=== PATIENT | female | born 1945 | race Caucasian/White ===

== ENCOUNTER → 2016-05-16 | Outpatient (CLI) | payer MEDICARE, OTHER ==
--- NOTE | 2016-05-17 07:27 | MRI ---
EXAM DESCRIPTION: Brain w/oContrast CLINICAL HISTORY: 71 years, Female, MEMORY LOSS COMPARISON: None available. TECHNIQUE: Multiplanar multi sequence images of the brain were obtained without gadolinium contrast. FINDINGS: Diffusion-weighted images show no diffusion restriction. Midline structures, including the corpus callosum, pituitary and brainstem, are unremarkable. The ventricles are of normal size and configuration, and there is no intraventricular mass. Physiologic vascular flow voids are noted. The internal auditory canals and cerebellopontine angles are unremarkable. There are no extra-axial fluid collections. There are irregular areas of increased T2/FLAIR signal involving periventricular and subcortical white matter in both cerebral hemispheres, nonspecific but likely related to chronic ischemic microvascular disease. There is no posterior fossa lesion. Visualized paranasal sinuses and orbits are unremarkable. There is no calvarial lesion. IMPRESSION: Irregular areas of increased T2/FLAIR signal involving periventricular and subcortical white matter in both cerebral hemispheres, nonspecific but likely related to chronic ischemic microvascular disease. No additional intracranial abnormality to explain memory loss. Electronically signed by: Ketan Hernandes MD 05/17/2016 7:26 AM CDT
== END | disposition home or self-care (01) ==
LOC: MRI 12:46
PROVIDERS: ATTEND Family Medicine
DX: R41.89 Other symptoms and signs involving cognitive functions and awareness (principal)

== ENCOUNTER → 2017-04-19 | Outpatient (CLI) | payer MEDICARE, OTHER | LOC: GMAH 11:46 | PROVIDERS: ATTEND Family Medicine | DX: R53.81 Other malaise (principal); E53.8 Deficiency of other specified B group vitamins; E55.9 Vitamin D deficiency, unspecified ==

== ENCOUNTER → 2017-06-04 | Outpatient (CLI) | payer MEDICARE, OTHER | LOC: GMAH 14:31 | PROVIDERS: ATTEND Family Medicine | DX: E03.9 Hypothyroidism, unspecified (principal); E53.8 Deficiency of other specified B group vitamins ==

== ENCOUNTER 2017-06-22 20:52 | Emergency (ER) | payer MEDICARE, OTHER ==
--- NOTE | 2017-06-22 21:49 | ED.PDOC ---
History of Present Illness - General Chief Complaint: Behavioral / Psych Stated Complaint: shaky, legs feel like "jelly", heavy chest pressu Time Seen by Provider: 06/22/17 21:04 Source: patient Exam Limitations: no limitations Additional Information: PT STATES SHE WAS LEAVING TO EAT WHEN HER LEGS BECAME LIKE JELLY AND SHE ALMOST FELL. WAS ABLE TO GET HER INTO THE CAR SHE DID GO OUT AND EAT DINNER BUT HER LEGS STILL FEEL HEAVY SO SHE CAME TO THE ER FOR EVALUATION. NO FOCAL WEAKNESS. - History of Present Illness Timing/Duration: other - [employer] Severity: moderate Improving Factors: nothing Worsening Factors: nothing Associated Symptoms: chest pain Allergies/Adverse Reactions: Allergies UNOBTAINABLE Allergy (Verified 06/22/17 21:05) Review of Systems - Review of Systems Constitutional: Denies: chills, fever EENTM: Denies: blurred vision, ear pain, throat pain Respiratory: Denies: cough, short of breath, wheezing Cardiology: States: chest pain, syncope, other - SUBSTERNAL PRESSURE, NO RADIATION. Denies: palpitations Gastrointestinal/Abdominal: Denies: abdominal pain, nausea, vomiting Genitourinary: States: no symptoms reported Musculoskeletal: States: other - C/O LEG HEAVINESS PRIMARILY IN THIGHS. Denies : back pain, neck pain Skin: States: no symptoms reported Neurological: States: numbness, weakness - C/O GEO LEG WEAKNESS. Denies: tingling Endocrine: States: no symptoms reported Hematologic/Lymphatic: States: no symptoms reported Past Medical History (General) - Patient Medical History Hx Congestive Heart Failure: No Hx Thyroid Disease: Yes Hx Cancer: Yes - colon Surgical History: cholecystectomy - Vaccination History Hx Tetanus, Diphtheria Vaccination: No Hx Influenza Vaccination: Yes Hx Pneumococcal Vaccination: Yes - Social History Hx Tobacco Use: No Hx Alcohol Use: No Family Medical History - Family History Mother Hx Cardiac Disease: Yes Physical Exam - Physical Exam General Appearance: Alert, Comfortable, No apparent distress Eye Exam: bilateral normal Ears, Nose, Throat: hearing grossly normal, normal ENT inspection Neck: non-tender, full range of motion, supple, normal inspection Respiratory: lungs clear, normal breath sounds, no respiratory distress Cardiovascular/Chest: regular rate, rhythm, no murmur Gastrointestinal/Abdominal: normal bowel sounds, non tender, soft, no organomegaly Back Exam: normal inspection, no CVA tenderness, no vertebral tenderness Extremity: normal range of motion, non-tender, normal inspection Neurologic: oiler bander II-XII nml as tested, no motor/sensory deficits, alert, normal mood/affect, oriented x 3, other - NL HEEL TO PHILLIPS Skin Exam: normal color, warm/dry Lymphatic: no adenopathy Progress - Progress Progress: 06/23/17 00:45 PT FEELS BETTER. STATES HER R LEG IS TENDER INTO HER BUTTOCKS. HEEL TO PHILLIPS REMAINS NL AND PT'S GAIT IS NL. SHE WANTS TO GO HOME. - EKG/XRAY/CT EKG: Sinus - RATE 82, NL AXIS, NL INTERVALS, NON SPECIFIC T WAVE ABN, NAIP, NO OLD FOR COMPARISON XRAY: chest - R SCOLIOSIS, MARGARITA, CT: HEAD, MARGARITA, Departure - Departure Clinical Impression: Weakness of both legs Hypothyroidism Qualifiers: Hypothyroidism type: unspecified Qualified Code(s): E03.9 - Hypothyroidism, unspecified ICD-10 Supporting Text: RESOLVED Time of Disposition: 00:44 Disposition: Discharge to Home or Self Care Condition: Good Departure Forms: ED Discharge - Pt. Copy, Patient Portal Self Enrollment Instructions: DI for Muscle Weakness Referrals: Samm Wynne MD [Primary Care Provider] - 1-2 Weeks
[2017-06-22 22:20] VITALS: TEMP 97.8
--- NOTE | 2017-06-22 23:27 | RAD ---
EXAM: Single view chest. INDICATION: Weakness. COMPARISON: Chest x-ray: None. FINDINGS: Cardiac silhouette: Unremarkable. Judith: Unremarkable. Lobar consolidation: None. Pleural effusion: None. Pneumothorax: None. Other: None. Bones: There is S-shaped scoliosis of the thoracolumbar spine. There are changes of anterior cervical fusion Other: None. IMPRESSION: 1. No acute cardiopulmonary process. Electronically signed by: Pardeep Dsouza MD 06/22/2017 11:25 PM CDT Workstation: [id number]
--- NOTE | 2017-06-22 23:28 | CT ---
EXAM DESCRIPTION: Head CLINICAL HISTORY: LE WEAKNESS COMPARISON: None Available. TECHNIQUE: Contiguous axial images of the brain were obtained without the administration of intravenous contrast. This exam was performed according to our departmental dose-optimization program, which includes automated exposure control, adjustment of the mA and/or kV according to patient size and/or use of iterative reconstruction technique. FINDINGS: There is no acute intracranial hemorrhage or mass effect. Ventricular system is within normal limits. Areas of low-attenuation within the periventricular white matter are nonspecific but suggestive of small vessel disease. There is atherosclerosis. There is adequate ag-white matter differentiation. There is no skull fracture. Fluid level within the right maxillary sinus compatible with acute sinusitis changes. Lobular opacity in the left maxillary sinus could be secondary to chronic sinusitis changes. IMPRESSION: No acute intracranial abnormalities. Sinusitis changes as described. Electronically signed by: Quinn Min MD 06/22/2017 11:27 PM CDT
[2017-06-22] MEDS ORDERED: KETOROLAC TROMETHAMINE INJ 30 MG/ML VIAL IV ONE (23:43)
[2017-06-22] MEDS ORDERED: KETOROLAC TROMETHAMINE INJ 30 MG/ML VIAL ONE (23:44)
[2017-06-23 00:50] VITALS: BP 126/78; O2SAT 98
== END 2017-06-23 00:50 | disposition home or self-care (01) ==
LOC: ER 20:52
DX: M62.81 Muscle weakness (generalized) (principal); E03.9 Hypothyroidism, unspecified; M41.9 Scoliosis, unspecified; Z85.038 Personal history of other malignant neoplasm of large intestine; Z82.49 Family history of ischemic heart disease and other diseases of the circulatory system
CPT/HCPCS: 36415; 70450; 71045; 80053; 81001; 84484; 85025; 85610; 85651; 85730; 93005; J1885

== ENCOUNTER → 2017-07-02 | Outpatient (CLI) | payer MEDICARE, OTHER ==
--- NOTE | 2017-07-02 19:16 | CT ---
EXAM DESCRIPTION: CT CERVICAL SPINE CLINICAL HISTORY: G56.01, G56.13 COMPARISON: 09/25/2013 MRI TECHNIQUE: Contiguous axial images of the cervical spine were obtained followed by reconstruction images.This exam was performed according to our departmental dose-optimization program, which includes automated exposure control, adjustment of the mA and/or kV according to patient size and/or use of iterative reconstruction technique. FINDINGS: There are postoperative changes. 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 Sonography is recommended if this has not been performed. There are bony degenerative changes. No acute complication of surgery is seen. Surgical hardware appears intact. No evidence of acute failure or loosening. No prevertebral soft tissue swelling. There is no acute fracture or subluxation. IMPRESSION: No acute fracture or subluxation. Electronically signed by: Tray Winslow 07/02/2017 7:14 PM CDT
== END ==
LOC: CT 13:30
PROVIDERS: ATTEND Psychiatry & Neurology Neurology
DX: G56.01 Carpal tunnel syndrome, right upper limb (principal); G56.13 Other lesions of median nerve, bilateral upper limbs

== ENCOUNTER → 2017-12-06 | Outpatient (CLI) | payer MEDICARE, OTHER ==
--- NOTE | 2017-12-06 10:09 | RAD ---
EXAM DESCRIPTION: Wrist,Right 3 Views CLINICAL HISTORY: 72 years, Female, RT WRIST PAIN COMPARISON: None FINDINGS: Right wrist 3 x-ray views reveal severe degenerative osteoarthrosis of the lateral carpus involving first carpal metacarpal joint. Widening of the space between the bases of the first and second metacarpals is seen with spurring. Degenerative changes are seen of the first metacarpal phalangeal joint. No fracture. No bony destructive lesion. IMPRESSION: Advanced degenerative changes in the lateral carpus and first metacarpal phalangeal joint. Electronically signed by: Aníbal Treviño MD 12/06/2017 10:08 AM CDT
--- NOTE | 2017-12-06 10:11 | RAD ---
EXAM DESCRIPTION: Wrist,Left 3 Views CLINICAL HISTORY: 72 years, Female, LT WRIST PAIN COMPARISON: None FINDINGS: Left wrist 3 x-ray views is negative for fracture or dislocation. Advanced degenerative osteoarthrosis of the lateral carpus is seen predominantly involving the first carpal metacarpal joint. Degenerative spurring projects laterally from the distal scaphoid and trapezium. There may be fusion of trapezoid and trapezium. Mildly widened space between the bases of the first and second metacarpals. Mild degenerative narrowing of the first metacarpal phalangeal joint and interphalangeal joint of the thumb. 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 Electronically signed by: Aníbal Treviño MD 12/06/2017 10:09 AM CDT
== END ==
LOC: RAD 09:08
PROVIDERS: ATTEND Orthopaedic Surgery
DX: M25.531 Pain in right wrist (principal); M25.532 Pain in left wrist; M12.831 Other specific arthropathies, not elsewhere classified, right wrist; M12.832 Other specific arthropathies, not elsewhere classified, left wrist

== ENCOUNTER → 2017-12-10 | Outpatient (CLI) | payer MEDICARE, OTHER | LOC: RESP 08:27 | PROVIDERS: ATTEND Orthopaedic Surgery | DX: Z01.818 Encounter for other preprocedural examination (principal) ==

== ENCOUNTER 2017-12-18 05:52 | Day surgery (SDC) | payer MEDICARE, OTHER ==
--- NOTE | 2017-12-17 08:44 | HP ---
CHIEF COMPLAINT: Right hand pain and numbness. HISTORY OF PRESENT ILLNESS: Ms. Torrez is a 72-year-old female with a history of pain and numbness in the hand. She has had this going on for about one year and it has been getting progressively worse. The symptoms seem to be much worse on the right. She cannot wear braces because it does cause skin breakdown. EMG does confirm presence of carpal tunnel syndrome. Her symptoms are most prominent in the radial three digits. We talked about options and she has requested operative intervention. After discussing the risks, benefits and alternatives to that, the patient has given informed consent. PAST SURGICAL HISTORY: 1. Knee surgery. 2. Lumbar laminectomy. 3. Discectomy. MEDICATIONS: 1. Robinul. 2. Potassium. 3. Premarin. 4. Zocor. 5. Celebrex. 6. Protonix. 7. Synthroid. 8. Xyzal. 9. Tumeric. ALLERGIES: NO KNOWN DRUG ALLERGIES. CODE STATUS: Full code. IMMUNIZATIONS: Up to date. FAMILY HISTORY: None pertinent to today's complaint. SOCIAL HISTORY: The patient does not smoke or use any illicit drugs. She does drink on occasion. REVIEW OF SYSTEMS: Negative except as indicated in the History of Present Illness. PHYSICAL EXAMINATION: VITAL SIGNS: Blood pressure 132/80. Pulse 92. Height 5'4". Weight 138 pounds. MENTAL STATUS: The patient is awake, alert, and is able to give a good history and participate in the physical. The patient is oriented to person, place and time. SKIN: Normal tone and turgor. MUSCULOSKELETAL: She has positive Tinel's and positive carpal compression test. Sensation on the medial aspect is intact. She has a positive Tinel's at the elbow. Selling Underwriter strength is 5/5. She maintains full range of motion in the shoulder, elbow, wrist and digits. She does have some thenar atrophy. ASSESSMENT: 1. Carpal tunnel syndrome. PLAN: The plan at this point is for carpal tunnel release. We have discussed the risks, benefits, and alternatives to that and the patient has given informed consent. [facility][id number] [facility]
[2017-12-18] MEDS ORDERED: SODIUM CHL 0.9% 100ML MINI-BAG 100 ML IVPB ONE (05:57)
[2017-12-18] MEDS ORDERED: ceFAZolin SODIUM 1 GM VIAL ONE (05:57)
[2017-12-18] MEDS ORDERED: LACTATED RINGERS 1,000 ML ONE (05:57)
[2017-12-18] MEDS ORDERED: LACTATED RINGERS 1,000 ML BAG IV ONE (08:30)
[2017-12-18] MEDS ORDERED: BUPIVACAINE 0.25% INJ 30 ML VIAL INJ ONE (09:50)
[2017-12-18] MEDS ORDERED: LIDOCAINE 1% 10 ML VIAL INJ ONE ×2 (09:51→10:00)
[2017-12-18] MEDS ORDERED: PROPOFOL 200 MG/20 ML VIAL IV ONE (10:00)
[2017-12-18] MEDS ORDERED: MIDAZOLAM INJ 2 MG/2 ML VIAL ONE (12:01)
[2017-12-18] MEDS ORDERED: fentaNYL CITRATE INJ 50 MCG/ML AMP ONE (12:02)
[2017-12-18] MEDS: ceFAZolin SODIUM 1 GM VIAL ONE ×2 (12:28→12:35)
[2017-12-18] MEDS: VANCOMYCIN HCL INJ 1,000 MG VIAL IVPB ONE ×2 (12:28→12:35)
[2017-12-18 15:13] VITALS: BP 129/74; TEMP 9704; O2SAT 100
--- NOTE | 2017-12-20 08:42 | OP ---
DATE OF PROCEDURE: 12/18/17 PREOPERATIVE DIAGNOSIS: 1. Carpal tunnel syndrome. POSTOPERATIVE DIAGNOSIS: 1. Carpal tunnel syndrome. PROCEDURE: 1. Carpal tunnel release. SURGEON: Clark Montgomery MD. ASBESTOS SIDING INSTALLER: Tray Rubin CST, SA-C. ANESTHESIA: Local with sedation. COMPLICATIONS: None. FINDINGS: Narrowing of the median nerve across the carpal tunnel. INDICATION: Ms. Torrez has a history of carpal tunnel syndrome that has been refractory to conservative measures. She has requested operative intervention secondary to failure of conservative measures. After discussing the risks, benefits and alternatives to that, the patient has given informed consent for carpal tunnel release. PROCEDURE: The patient was brought to the Operating Room and placed in the supine position. Sedation was administered and local anesthetic was injected into the operative area under sterile conditions. After the injection of anesthetic, the arm was sterilely prepped and draped. A longitudinal incision was made directly overlying the transverse carpal ligament and blunt dissection was carried down to the ligament. The transverse carpal ligament was sharply transected along its length and a Steele elevator was used to ensure complete release of the ligament. Once release had been confirmed, the wound was thoroughly irrigated and the wound was closed with Nylon suture. A sterile dressing was placed and the patient was taken to the Day Surgery Unit. POSTOPERATIVE PLAN: The patient has been encouraged to do range of motion of the digits and will followup with us in approximately two days. [facility][id number] [facility]
== END 2017-12-18 13:45 | disposition home or self-care (01) ==
LOC: AMB 05:52
PROVIDERS: ATTEND Orthopaedic Surgery
DX: G56.01 Carpal tunnel syndrome, right upper limb (principal); K21.9 Gastro-esophageal reflux disease without esophagitis; Z85.038 Personal history of other malignant neoplasm of large intestine; Z79.899 Other long term (current) drug therapy
CPT/HCPCS: 01810; 64721; J0690; J2250; J3010; J3370; J7050; J7120

== ENCOUNTER → 2018-09-18 | Outpatient (CLI) | payer MEDICARE, OTHER ==
--- NOTE | 2018-09-18 17:40 | US ---
US THYROID CLINICAL STATEMENT: HYPOTHYROIDISM UNSPEC. COMPARISON: None TECHNIQUE: Transcutaneous scanning, grayscale and Doppler modes. FINDINGS: Size right thyroid lobe: 6.1 x 2.1 x 1.9 cm Size left thyroid lobe: 2.4 x 1.3 x 1.0 cm Size isthmus: 0.18 cm Estimated total number of nodules greater than or equal to 1 cm: 1 Nodule 1: Size: 1.2 x 0.8 x 0.5 cm Location: Right Mid Composition: solid or almost completely solid: 2 points Echogenicity: hypoechoic: 2 points Shape: wider than tall: 0 points Margins: smooth: 0 points Echogenic foci: none: 0 points ACR Total Points: 4; ACR TI-RADS risk category: TR4 - moderately suspicious nodule. Nodule 2: Size: 0.8 x 0.7 x 0.5 cm Location: Right Mid Composition: spongiform: 0 points Echogenicity: hypoechoic: 2 points Shape: wider than tall: 0 points Margins: smooth: 0 points Echogenic foci: none: 0 points ACR Total Points: 2; ACR TI-RADS risk category: TR2 - nonsuspicious nodule. The gland is heterogeneous. Right lobe is larger than the left. No simple cysts or large calcifications. Surrounding soft tissues are unremarkable. IMPRESSION: 1. Nodule 1: ACR TI-RADS 2017 Category TR4. Recommend: Follow-up ultrasound in 1 year.. Recommendations based upon [facility] Best [employer] recommendations and ACR TI-RADS 2017 guidelines. Please see below*. 2. Nodule 2: ACR TI-RADS 2017 Category TR2. Recommend: No further follow-up. 3. Heterogeneous thyroid. Right lobe is larger than the left. Possible previous left thyroid lobe surgery. Soft tissue around the thyroid gland is unremarkable. *ACR TI-RADS 2017 Recommendations: TR1: No FNA or follow up TR2: No FNA or follow up TR3: FNA if >/= 2.5 cm, follow up if 1.5 - 2.4 cm in 1, 3, and 5 years TR4: FNA if >/= 1.5 cm, follow up if 1.0 - 1.4 cm in 1, 2, 3, and 5 years TR5: FNA if >/= 1.0 cm, follow up if 0.5 - 0.9 cm every year for 5 years ACR TI-RADS recommends that no more than two nodules with the highest ACR TI-RADS total point should be biopsied and no more than four nodules should be followed. These recommendations do not apply to patients with increased risk for thyroid cancer or patients with symptomatic thyroid disease. Electronically signed by: Tray Oates MD 09/18/2018 5:39 PM CDT
== END ==
LOC: US 11:00
PROVIDERS: ATTEND Family Medicine
DX: E03.9 Hypothyroidism, unspecified (principal); E04.2 Nontoxic multinodular goiter

== ENCOUNTER → 2019-08-11 | Outpatient (CLI) | payer MEDICARE, OTHER ==
--- NOTE | 2019-08-11 10:43 | RAD ---
EXAM DESCRIPTION: Shoulder,Right 2 or More Views CLINICAL HISTORY: 74 years Female, PAIN IN RIGHT SHOULDER COMPARISON: None available. FINDINGS: The visualized bones are well-mineralized.No acute fracture or dislocation. Moderate acromioclavicular joint osteoarthritis. The soft tissues appear grossly unremarkable. IMPRESSION: Moderate acromioclavicular joint osteoarthritis. No acute abnormality. Electronically signed by: Jennifer Gipson MD 08/11/2019 10:41 AM CDT
== END ==
LOC: RAD 08:38
PROVIDERS: ATTEND Orthopaedic Surgery
DX: M19.011 Primary osteoarthritis, right shoulder (principal)

== ENCOUNTER → 2019-08-20 | Outpatient (CLI) | payer MEDICARE, OTHER ==
--- NOTE | 2019-08-20 12:16 | MRI ---
Study: MRI of the Right Shoulder. Indication: ROTATOR CUFF SYNDROME Technique: Multiplanar, multi sequence MRI of the right shoulder was obtained without intravenous contrast. Comparison: None. Findings: Mild to moderate AC joint osteoarthritis. Type I acromion with moderate lateral downsloping. Trace subacromial/subdeltoid bursal fluid. Supraspinatus and infraspinatus tendinosis and low-grade attenuation. At the mid supraspinatus tendon insertion to the mid infraspinatus tendon insertion is irregular low to intermediate grade interstitial tearing. The tear defect extends over an AP length of 17 mm and a transverse width up to 6 mm. Adjacent reactive edema in the greater tuberosity. Subscapularis tendinosis with high-grade articular tearing superior two thirds tendon insertion. Teres minor tendon intact. Rotator cuff musculature normal without atrophy, fatty infiltration, or intramuscular edema. Subtle intracapsular long head biceps tendinosis. Circumferential labral truncation/degeneration. Minimal glenohumeral joint osteoarthritis with tiny joint effusion. No acute fracture. Impression: Supraspinatus and infraspinatus tendinosis and low-grade attenuation with irregular low to intermediate grade interstitial tearing of the conjoined tendon insertion. Subscapularis tendinosis with high-grade articular tearing superiorly. Subtle intracapsular long head biceps tendinosis. Circumferential labral truncation and degeneration. Minimal glenohumeral joint osteoarthritis with tiny joint effusion. Mild to moderate AC joint osteoarthritis. Electronically signed by: Zhang Couch MD 08/20/2019 12:15 PM CDT
== END ==
LOC: MRI 10:02
PROVIDERS: ATTEND Orthopaedic Surgery
DX: M75.101 Unspecified rotator cuff tear or rupture of right shoulder, not specified as traumatic (principal); S43.431A Superior glenoid labrum lesion of right shoulder, initial encounter; M75.91 Shoulder lesion, unspecified, right shoulder; M75.21 Bicipital tendinitis, right shoulder; M19.011 Primary osteoarthritis, right shoulder; M25.411 Effusion, right shoulder

== ENCOUNTER → 2019-11-12 | Outpatient (CLI) | payer MEDICARE, OTHER ==
--- NOTE | 2019-11-13 12:49 | US ---
EXAM DESCRIPTION: Soft Tissue,Head/Neck CLINICAL HISTORY: 74 years, Female, ENLARGED LYMPH NODES, UNSP COMPARISON: None. FINDINGS: The thyroid gland was not evaluated. Some of the neck was performed to evaluate for lymph node enlargement. Right neck sonogram shows normal fatty and muscular structures with normal vessels. A few normal sized lymph nodes are measured. Normal ovoid shape with normal echogenic fatty hugo. Short axis dimension measurements 2.5 to 3.5 mm. The left neck is evaluated and small lymph nodes are seen with normal appearance. Short axis dimension of one node which appears compliance representative dealer 3.2 mm. IMPRESSION: Normal-sized lymph nodes in the neck. Electronically signed by: Aníbal Treviño MD 11/13/2019 12:47 PM CDT
== END ==
LOC: US 15:30
PROVIDERS: ATTEND Family Medicine
DX: R59.9 Enlarged lymph nodes, unspecified (principal)